=== PATIENT | female | born 1990 ===

== ENCOUNTER 2017-10-30 18:39 | Emergency (ER) | payer SELFPAY ==
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
--- NOTE | 2017-10-31 09:58 | CT SCAN REPORT ---
EXAM: CT OF THE CERVICAL SPINE HISTORY: NECK PAIN. TECHNIQUE: Axial CT images of the cervical spine were obtained with coronal and sagittal reconstructions. Comparison: None. FINDINGS: Evaluation of spinal canal contents is limited due to CT technique, however, the vertebral body height and alignment is preserved. The disk spaces are maintained. The surrounding soft tissues and lung apices are unremarkable. IMPRESSION: UNREMARKABLE CT OF THE CERVICAL SPINE. JOB NUMBER: [id number] [facility]
== END 2017-10-30 19:48 | disposition home or self-care (01) ==
LOC: ER 18:39
DX: S10.93XA Contusion of unspecified part of neck, initial encounter (principal); Y04.8XXA Assault by other bodily force, initial encounter
CPT/HCPCS: 72125; 99283

== ENCOUNTER 2017-11-07 10:40 | Emergency (ER) | payer SELFPAY ==
--- NOTE | 2017-11-07 11:08 | Emergency Department Record ---
History of Present Illness - General Chief Complaint: Neck Injury/Pain Stated Complaint: NECK PAIN Time Seen by Provider: 11/07/17 10:50 Source: Patient Mode of Arrival: Ambulatory Limitations: No limitations - History of Present Illness Initial Comments: The patient is here due to having persistent pain to her neck for 8 days since she was injured at work. She was initially seen here in the ER and had a neg CT of her neck. Since she has had persistent pain and intermittent pain that radiates to her R shoulder and proximal arm. Moving her head and neck intermittently causes the pain to radiate to her shoulder. She denies any arm weakness, forearm or hand numbness, paresthesias, leg weakness or numbness, or any bowel or bladder issues. The patient states she has been unable to see her PCP so she came back to the ER. MD Complaint: Neck injury, Neck pain Onset/Timin -: Days(s) Place: Work Radiation: Other Severity: Mild Severity scale (1-10): 6 Quality: Other Consistency: Constant Improves With: None Worsens With: Movement of neck Context: Other Associated Symptoms: None Treatments Prior to Arrival: None - Related Data Previous Rx's Medication Instructions Recorded Methylprednisolone [Medrol Dose 4 mg PO DAILY #1 tab.ds.pk 11/07/17 Pack] Naproxen [Naprosyn] 250 mg PO BID #14 tablet 11/07/17 Allergies Allergy/AdvReac Type Severity Reaction Status Date / Time No Known Allergies Allergy none Verified 10/30/17 18:53 Travel Screening - Travel/Exposure Within Last 30 Days Have you traveled within the last 30 days?: No Review of Systems Constitutional: Denies: Chills, Fever Eyes: Denies: Eye discharge ENT: Denies: Congestion Respiratory: Denies: Cough, Dyspnea Past Medical History - SOCIAL HISTORY Smoking Status: Never smoker - RESPIRATORY Hx Respiratory Disorders: No - CARDIOVASCULAR Hx Cardio Disorders: No - NEURO Hx Neuro Disorders: No - GI Hx GI Disorders: No - Hx Genitourinary Disorders: No - ENDOCRINE Hx Endocrine Disorders: No - MUSCULOSKELETAL Hx Musculoskeletal Disorders: No - PSYCH Hx Psych Problems: No - HEMATOLOGY/ONCOLOGY Hx Hematology/Oncology Disorders: No Family Medical History Any Significant Family History?: No Physical Exam - General General Appearance: Alert, Oriented x3, Cooperative, No acute distress - Head Head exam: Atraumatic, Normocephalic, Normal inspection - Eye Eye exam: Normal appearance, PERRL, EOMI - Neck Neck exam: Normal inspection, Tenderness (Palpation of the posterior neck reproduces the pain 100% R>L. There is no bruising, swelling or abrasions.). negative: Full ROM, Lymphadenopathy, Meningismus - Respiratory Respiratory exam: Normal lung sounds bilaterally. negative: Respiratory distress - Cardiovascular Cardiovascular Exam: Regular rate, Normal rhythm, Normal heart sounds - GI/Abdominal GI/Abdominal exam: Soft, Normal bowel sounds. negative: Tenderness - Extremities Extremities exam: Normal inspection, Full ROM, Normal capillary refill. negative: Joint swelling, Pedal edema, Tenderness - Neurological Neurological exam: Alert, Normal gait, Oriented X3, Reflexes normal (arm and leg reflexes are 2+ and equal bilaterally.). negative: Abnormal gait, Altered, Motor sensory deficit (Motor and sensory is 5/5 upper and lower extremities.) - Skin Skin exam: negative: Rash Course Vital Signs 11/07/17 10:41 Temperature 98.1 F Pulse Rate 77 Respiratory 18 Rate Blood Pressure 121/71 Pulse Ox 97 - Reevaluation(s) Reevaluation #1: I did explain to the patient that it appears she is having pain possibly related to the contusion. She is to F/U with an Occupational Health provider and is to be sent for PT and if not better in a month may need an MRI. She understands the plan and will comply. 11/07/17 11:05 Disposition Disposition: Discharge Clinical Impression: Neck contusion Qualifiers: Encounter type: sequela Qualified Code(s): S10.93XS - Contusion of unspecified part of neck, sequela Disposition: Home, Self-Care Condition: (2) Stable Instructions: Cervical Sprain (ED) Additional Instructions: Please take the Medrol dose pack as directed then when done switch to Naprosyn. Please see your PCP or Occupational Health Provider for further evaluation. Return to the ER for any arm or leg weakness, increased numbness, or any bowel or bladder issues. Prescriptions: Methylprednisolone [Medrol Dose Pack] 4 mg PO DAILY #1 tab.ds.pk Naproxen [Naprosyn] 250 mg PO BID #14 tablet Forms: Patient Portal Access Time of Disposition: 11:09 Quality - Quality Measures Quality Measures: N/A - Blood Pressure Screening View Details: Yes Does Patient Have Any of the Following: No Blood Pressure Classification: Pre-Hypertensive BP Reading Systolic Measurement: 121 Diastolic Measurement: 71 Screening for High Blood Pressure: < Pre-Hypertensive BP, F/U Documented > [ G8950] Pre-Hypertensive Follow-up Interventions: Referral to alternative/primary care provider.
== END 2017-11-07 11:14 | disposition home or self-care (01) ==
LOC: ER 10:40
DX: S10.9 Superficial injury of unspecified part of neck (principal); W22.8XXA Striking against or struck by other objects, initial encounter; Y93.F9 Activity, other caregiving; Y92.10 Unspecified residential institution as the place of occurrence of the external cause; Y99.0 Civilian activity done for income or pay
CPT/HCPCS: 99282

== ENCOUNTER 2018-09-14 08:25 | Emergency (ER) | payer SELFPAY ==
[2018-09-14 08:46] LABS: URINE APPEARANCE CLEAR; URINE BILIRUBIN SMALL (NEGATIVE); URINE BLOOD LARGE (NEGATIVE); URINE COLOR YELLOW; URINE GLUCOSE (UA) NEGATIVE (NEGATIVE); URINE KETONE NEGATIVE (NEGATIVE); URINE LEUKOCYTE ESTERASE LARGE (NEGATIVE); URINE NITRITE POSITIVE (NEGATIVE); URINE UROBILINOGEN >=8.0 E.U./dL (0.20 - 1.00)
[2018-09-14] MEDS ORDERED: 0.9 % SODIUM CHLORIDE 1,000 ML BAG IV ONE (08:51)
[2018-09-14 08:59] LABS: HCG,QUALITATIVE URINE NEGATIVE (NEGATIVE); URINE BACTERIA 1+; URINE EPITHELIAL CELLS 0 - 2 (FEW); URINE RBC 0 - 2 (NONE SEEN)
[2018-09-14 09:06] LABS: BASO % 0.2 % (0-6); EOS % 0.1 % (0-6); GRAN % 79.9 % (47-80); HEMATOCRIT 39.1 % (35.0-47.0); HEMOGLOBIN 13.8 gm/dl (11.6-16.0); MEAN CELL VOLUME 88.3 fl (81-97); MEAN CORPUSCULAR HEMOGLOBIN 31.2 pg (27-33); MEAN CORPUSCULAR HGB CONC 35.3 g/dl (32-36); MONO % 10.8 % (0-9); PLATELET COUNT 175 K/uL (130-400); RED BLOOD COUNT 4.43 M/uL (3.80-5.40); RED CELL DISTRIBUTION WIDTH 12.1 % (11.5-14.5); WHITE BLOOD COUNT W/O DIFF 10.9 K/uL (4.2-12.2)
[2018-09-14] MEDS ORDERED: KETOROLAC 30 MG/ML VIAL IVP ONE (09:06)
[2018-09-14 09:16] LABS: BLOOD UREA NITROGEN 10 mg/dL (6-20); CREATININE 0.7 mg/dL (0.5-0.9); EST GLOMERULAR FILTRATION RATE > 60 mL/min
[2018-09-14 09:17] LABS: TOTAL PROTEIN 7.8 g/dL (6.6-8.7)
[2018-09-14 09:19] LABS: GLUCOSE,RANDOM 166 mg/dL (74-109)
[2018-09-14 09:21] LABS: ALT/SGPT 74 U/L (<33)
[2018-09-14 09:22] LABS: ALB/GLOB RATIO 1.3 (1.1-1.8); ALBUMIN 4.4 g/dL (4.0-5.0); ALKALINE PHOSPHATASE 69 U/L (35-104); AST/SGOT 60 U/L (10.0-35.0)
--- NOTE | 2018-09-14 09:37 | Emergency Department Record ---
History of Present Illness - General Chief complaint: Flank Pain Stated complaint: FLANK PAIN RIGHT SIDE/NAUSEA Time Seen by Provider: 09/14/18 08:45 Source: Patient Mode of Arrival: Ambulatory Limitations: No limitations - History of Present Illness Initial comments: pt has been having r flank and lower quad pain for 2 days. she has a hx of kidney stones. she vomited yesterday. pain is constant MD Complaint: Other Onset/Timin -: Days(s) Radiation: R flank Severity scale (1-10): 10 Quality: Cramping, Sharp Consistency: Constant Improves with: None Worsens with: None Patient : No Associated Symptoms: Nausea/vomiting - Related Data Home Medications Medication Instructions Recorded Confirmed Last Taken No Home Med [NO HOME MEDS] 09/14/18 09/14/18 Unknown Allergies Allergy/AdvReac Type Severity Reaction Status Date / Time No Known Allergies Allergy none Verified 10/30/17 18:53 Travel Screening - Travel/Exposure Within Last 30 Days Have you traveled within the last 30 days?: No - Travel/Exposure Within Last Year Have you traveled outside the [place] in the last year?: No - Additonal Travel Details Have you been exposed to anyone with a communicable illness?: No Review of Systems Reviewed: No additional complaints except as noted below Constitutional: Reports: As per HPI. Denies: Chills, Fever, Malaise, Night sweats, Weakness, Weight change Eyes: Reports: As per HPI. Denies: Eye discharge, Eye pain, Photophobia, Vision change ENT: Reports: As per HPI. Denies: Congestion, Dental pain, Ear pain, Epistaxis , Hearing loss, Throat pain Respiratory: Reports: As per HPI. Denies: Cough, Dyspnea, Hemoptysis, Stridor, Wheezes Cardiovascular: Reports: As per HPI. Denies: Arrhythmia, Chest pain, Dyspnea on exertion, Edema, Murmurs, Orthopnea, Palpitations, Paroxysmal nocturnal dyspnea, Rheumatic Fever, Syncope Endocrine: Reports: As per HPI. Denies: Fatigue, Heat or cold intolerance, Polydipsia, Polyuria Gastrointestinal: Reports: As per HPI, Abdominal pain, Nausea, Vomiting. Denies : Constipation, Diarrhea, Hematemesis, Hematochezia, Melena Genitourinary: Reports: As per HPI. Denies: Abnormal menses, Discharge, Dyspareunia, Dysuria, Frequency, Hematuria, Incontinence, Retention, Urgency Musculoskeletal: Reports: As per HPI, Back pain. Denies: Arthralgia, Gout, Joint swelling, Myalgia, Neck pain Skin: Reports: As per HPI. Denies: Bruising, Change in color, Change in hair/ nails, Lesions, Pruritus, Rash Neurological: Reports: As per HPI. Denies: Abnormal gait, Confusion, Headache, Numbness, Paresthesias, Seizure, Tingling, Tremors, Vertigo, Weakness Psychiatric: Reports: As per HPI. Denies: Anxiety, Auditory hallucinations, Depression, Homicidal thoughts, Suicidal thoughts, Visual hallucinations Hematological/Lymphatic: Reports: As per HPI. Denies: Anemia, Blood Clots, Easy bleeding, Easy bruising, Swollen glands Past Medical History - SOCIAL HISTORY Smoking Status: Never smoker Alcohol Use: None Drug Use: None - RESPIRATORY Hx Respiratory Disorders: No - CARDIOVASCULAR Hx Cardio Disorders: No - NEURO Hx Neuro Disorders: No - GI Hx GI Disorders: No - Hx Genitourinary Disorders: Yes Hx Kidney Stones: Yes - ENDOCRINE Hx Endocrine Disorders: No - MUSCULOSKELETAL Hx Musculoskeletal Disorders: No - PSYCH Hx Psych Problems: No - HEMATOLOGY/ONCOLOGY Hx Hematology/Oncology Disorders: No Family Medical History Any Significant Family History?: No Physical Exam - General General Appearance: Alert, Oriented x3, Cooperative, Mild distress - Head Head exam: Normal inspection - Eye Eye exam: Normal appearance, PERRL, EOMI Pupils: Normal accommodation - ENT ENT exam: Normal exam, Mucous membranes moist, Normal external ear exam, Normal orophraynx Ear exam: Normal external inspection. negative: External canal tenderness Nasal Exam: Normal inspection. negative: Discharge, Sinus tenderness Mouth exam: Normal external inspection, Tongue normal Teeth exam: Normal inspection. negative: Dental caries Throat exam: Normal inspection. negative: Tonsillar erythema, Tonsillar exudate - Neck Neck exam: Normal inspection, Full ROM. negative: Tenderness - Respiratory Respiratory exam: Normal lung sounds bilaterally. negative: Respiratory distress - Cardiovascular Cardiovascular Exam: Normal rhythm, Normal heart sounds, Tachycardia - GI/Abdominal GI/Abdominal exam: Soft, Normal bowel sounds, Tenderness - Rectal Rectal exam: Deferred - exam: Deferred - Extremities Extremities exam: Normal inspection, Full ROM, Normal capillary refill. negative: Tenderness - Back Back exam: Reports: Normal inspection, Full ROM. Denies: Muscle spasm, Rash noted, Tenderness - Neurological Neurological exam: Alert, Normal gait, Oriented X3, Reflexes normal - Psychiatric Psychiatric exam: Normal affect, Normal mood - Skin Skin exam: Dry, Intact, Normal color, Warm Course Vital Signs 09/14/18 08:27 Temperature 99.3 F Pulse Rate 114 H Respiratory 20 Rate Blood Pressure 119/75 Pulse Ox 99 - Reevaluation(s) Reevaluation #1: 09/14/18 10:08 ct shows hydroneprosis w stranding and hydroureter, there are calcifications in pelvis that are possible renal stones and phleboliths. d/w dr senior Medical Decision Making - Lab Data Result diagrams: 09/14/18 08:41 09/14/18 08:41 Lab Results 09/14/18 09/14/18 09/14/18 Range/Units 08:41 08:41 Unknown WBC 10.9 (4.2-12.2) K/uL RBC 4.43 (3.80-5.40) M/uL Hgb 13.8 (11.6-16.0) gm/dl Hct 39.1 (35.0-47.0) % MCV 88.3 (81-97) fl MCH 31.2 (27-33) pg MCHC 35.3 (32-36) g/dl RDW 12.1 (11.5-14.5) % Plt Count 175 (130-400) K/uL MPV 12.0 H (7.4-10.4) fl Gran % 79.9 (47-80) % Lymphocytes % 9.0 L (16-45) % Monocytes % 10.8 H (0-9) % Eosinophils % 0.1 (0-6) % Basophils % 0.2 (0-6) % Sodium 134 L (136-145) mmol/L Potassium 3.6 (3.4-4.5) mmol/L Chloride 98 (98-107) mmol/L Carbon Dioxide 23.0 (22-29) mmol/L Anion Gap 13.0 (7-16) BUN 10 (6-20) mg/dL Creatinine 0.7 (0.5-0.9) mg/dL Estimated GFR > 60 mL/min Random Glucose 166 H (74-109) mg/dL Calcium 9.2 (8.6-10.0) mg/dL Total Bilirubin 1.10 H (0.2-1.0) mg/dL AST 60 H (10.0-35.0) U/L ALT 74 H (<33) U/L Alkaline Phosphatase 69 (35-104) U/L Total Protein 7.8 (6.6-8.7) g/dL Albumin 4.4 (4.0-5.0) g/dL Globulin 3.4 (1.4-4.8) gm/dL Albumin/Globulin Ratio 1.3 (1.1-1.8) Urine Color Yellow Urine Appearance Clear Urine pH 6.5 (5.0-8.0) Ur Specific Morse 1.025 (1.002-1.030) Urine Protein 100 mg/dl H (NEGATIVE) Urine Glucose (UA) Negative (NEGATIVE) Urine Ketones Negative (NEGATIVE) Urine Blood Large H (NEGATIVE) Urine Nitrite Positive H (NEGATIVE) Urine Bilirubin Small H (NEGATIVE) Urine Urobilinogen >=8.0 (0.20 - 1.00) E.U./dL Ur Leukocyte Esterase Large H (NEGATIVE) Urine RBC 0 - 2 (NONE SEEN) Urine WBC Too numerous to cnt (0-2/hpf) Ur Epithelial Cells 0 - 2 (FEW) Urine Bacteria 1+ Urine HCG, Qual Negative (NEGATIVE) Disposition Disposition: Transfer Clinical Impression: Pyelonephritis Hydronephrosis Qualifiers: Hydronephrosis type: with ureteropelvic junction obstruction 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
[2018-09-14] MEDS ORDERED: CIPROFLOXACIN LACTATE/D5W 400 MG/200 ML BAG IVPB ONE (09:57)
[2018-09-14] MEDS ORDERED: HYDROMORPHONE HCL 2 MG/ML VIAL IVP ONE (09:57)
--- NOTE | 2018-09-16 20:33 | CT SCAN REPORT ---
EXAM: CT SCAN ABDOMEN/PELVIS WO CONTRAST HISTORY: RIGHT FLANK AND RIGHT LOWER QUADRANT PAIN, HEMATURIA. TECHNIQUE: Axial CT scan of the abdomen and pelvis performed without oral or IV contrast. COMPARISON: None. FINDINGS: No calcified gallstones are seen within the gallbladder. No intrarenal calculi identified on either side. No hydronephrosis seen on the left and no hydroureter evident on the left. However, on the right, there is questionably slight hydronephrosis and there is also some blurring of the renal borders with soft tissue stranding in the adjacent perirenal adipose tissue. Slight dilatation of the upper right ureter. More distally, both ureters are extremely difficult to follow through the pelvis related to adjacent bowel and gynecologic viscera. There are some small pelvic calcifications bilaterally. These may all just be phleboliths, although on the right in particular, it is difficult to be certain of the relationship to the lower ureter, as the ureter itself is so poorly seen. Findings involving the right kidney could also be related to acute infection rather than acute ureteral obstruction. If there remains a strong clinical suspicion of a ureteral calculus, follow-up CT urography in this case may be useful for further evaluation in an effort to opacify the right ureter and establish its relationship to the pelvic calcifications evident. Evaluation of the bowel and viscera extremely limited without oral or IV contrast. Given this limitation, no definite hepatic, splenic, adrenal, pancreatic, or renal mass identified. Uterus is somewhat prominent in size measuring approximately 10 cm in transverse, by 9 cm in AP diameter. This is nonspecific, although could be related to leiomyomatous involvement. I believe the appendix is identified as a normal-caliber air-containing structure with no appendicitis evident. No free intraperitoneal air or free intraperitoneal fluid identified. IMPRESSION: 1. FINDINGS INVOLVING THE RIGHT KIDNEY AND UPPER URETER, DESCRIBED ABOVE, WHICH COULD REPRESENT URINARY TRACT INFECTION OR POSSIBLY A DISTAL RIGHT URETERAL CALCULUS. THE RIGHT URETER ITSELF CANNOT BE ACCURATELY FOLLOWED THROUGH THE LOWER PELVIS IN THE AREA OF SOME SMALL PELVIC CALCIFICATIONS. IF CLINICALLY WARRANTED, FOLLOW-UP CT UROGRAPHY COULD PERFORMED. 2. APPENDIX APPEARS NEGATIVE. NO FREE AIR OR FREE FLUID EVIDENT. 3. PROMINENT-SIZED UTERINE FUNDUS, NONSPECIFIC. JOB NUMBER: [id number] [facility]
== END 2018-09-14 10:41 | disposition short-term general hospital (02) ==
LOC: ER 08:25
DX: N10 Acute pyelonephritis (principal); R10.84 Generalized abdominal pain; R31.9 Hematuria, unspecified; R11.2 Nausea with vomiting, unspecified; Z87.442 Personal history of urinary calculi
CPT/HCPCS: 99285 ×2; 96365; 96375; 96361; 85025; 80053; 81001; 81025; 74176; J0744; J1885; J1170; J7030

== ENCOUNTER 2018-10-23 17:10 | Observation (INO) | payer SELFPAY ==
[2018-10-23] MEDS ORDERED: ONDANSETRON HCL IV 4 MG/2 ML VIAL IVP ONE (17:36)
[2018-10-23] MEDS ORDERED: 0.9 % SODIUM CHLORIDE 1,000 ML BAG IV ONE (17:36)
[2018-10-23] MEDS ORDERED: KETOROLAC 30 MG/ML VIAL IVP ONE (17:42)
[2018-10-23] MEDS ORDERED: HYDROMORPHONE HCL 2 MG/ML VIAL IVP ONE ×2 (17:42→19:16)
[2018-10-23 17:44] LABS: URINE APPEARANCE SL CLOUDY; URINE BILIRUBIN NEGATIVE (NEGATIVE); URINE BLOOD LARGE (NEGATIVE); URINE COLOR YELLOW; URINE GLUCOSE (UA) NEGATIVE (NEGATIVE); URINE KETONE NEGATIVE (NEGATIVE); URINE LEUKOCYTE ESTERASE LARGE (NEGATIVE); URINE NITRITE POSITIVE (NEGATIVE)
[2018-10-23] MEDS ORDERED: CEFTRIAXONE SODIUM 1 GM in 0.9 % SODIUM CHLORIDE 100ML 100 ML IVPB ONE (17:46)
--- NOTE | 2018-10-23 17:47 | Emergency Department Record ---
History of Present Illness - General Chief complaint: Female Urogenital Problem Stated complaint: VOMITING,LIGHT HEADED,FLANK PAIN Time Seen by Provider: 10/23/18 17:35 Source: Patient Mode of Arrival: Ambulatory Limitations: No limitations - History of Present Illness Initial comments: 28 yo female presents with dysuria and right sided pain. The onset was Monday. She was seen by her doctor and was diagnosed with a UTI. She was written for antibiotics. She has been having too much pain and vomiting to take any medication. She had a similar infection in August. She was transferred to [facility] at that time. She has had kidney stone prior as well. She states she was sent to [facility] in August given a suspicion of kidney stone but no stone was found at [facility]. The patient was taken to the OR at [facility]. No stone was found in the OR. MD Complaint: Dysuria, Other (Right flank pain) Onset/Timin -: Days(s) Location: LL, RLQ Severity: Moderate Severity scale (1-10): 10 Quality: Sharp Consistency: Constant Improves with: None Worsens with: None Patient : No Associated Symptoms: Nausea/vomiting - Related Data Allergies Allergy/AdvReac Type Severity Reaction Status Date / Time No Known Allergies Allergy none Verified 10/23/18 17:16 Travel Screening - Travel/Exposure Within Last 30 Days Have you traveled within the last 30 days?: No - Travel/Exposure Within Last Year Have you traveled outside the [place] in the last year?: No - Additonal Travel Details Have you been exposed to anyone with a communicable illness?: No Review of Systems Constitutional: Reports: Chills, Malaise. Denies: Fever Eyes: Denies: Eye discharge ENT: Denies: Congestion, Throat pain Respiratory: Denies: Cough, Dyspnea, Hemoptysis, Stridor, Wheezes Cardiovascular: Denies: Chest pain, Palpitations, Syncope Endocrine: Denies: Fatigue Gastrointestinal: Reports: Abdominal pain, Nausea, Vomiting. Denies: Diarrhea Genitourinary: Reports: Dysuria Musculoskeletal: Reports: Back pain Skin: Denies: Bruising, Change in color, Rash Neurological: Denies: Headache Psychiatric: Denies: Anxiety Hematological/Lymphatic: Denies: Easy bleeding, Easy bruising, Swollen glands Past Medical History - SOCIAL HISTORY Smoking Status: Never smoker Alcohol Use: None Drug Use: None - RESPIRATORY Hx Respiratory Disorders: No - CARDIOVASCULAR Hx Cardio Disorders: No - NEURO Hx Neuro Disorders: No - GI Hx GI Disorders: No - Hx Genitourinary Disorders: Yes Hx Kidney Stones: Yes - ENDOCRINE Hx Endocrine Disorders: No - MUSCULOSKELETAL Hx Musculoskeletal Disorders: No - PSYCH Hx Psych Problems: No - HEMATOLOGY/ONCOLOGY Hx Hematology/Oncology Disorders: No Family Medical History Any Significant Family History?: No Physical Exam - General General Appearance: Alert, Oriented x3, Cooperative, No acute distress Limitations: No limitations - Head Head exam: Atraumatic, Normal inspection - Eye Eye exam: Normal appearance. negative: Conjunctival injection, Scleral icterus - ENT ENT exam: Normal exam, Mucous membranes moist Ear exam: Normal external inspection Nasal Exam: Normal inspection Mouth exam: Normal external inspection - Neck Neck exam: Normal inspection - Respiratory Respiratory exam: Normal lung sounds bilaterally. negative: Respiratory distress, Rhonchi, Stridor, Wheezes - Cardiovascular Cardiovascular Exam: Regular rate, Normal rhythm, Normal heart sounds - GI/Abdominal GI/Abdominal exam: Soft, Tenderness - Rectal Rectal exam: Deferred - exam: Deferred - Back Back exam: Reports: CVA tenderness (L) - Neurological Neurological exam: Alert, Oriented X3 - Psychiatric Psychiatric exam: Normal affect, Normal mood - Skin Skin exam: Dry, Intact, Normal color, Warm Course Vital Signs 10/23/18 17:21 Temperature 99.4 F Pulse Rate 99 H Respiratory 20 Rate Blood Pressure 107/74 Pulse Ox 98 - Reevaluation(s) Reevaluation #1: 10/23/18 18:03 The UA is consistent with UTI CT ordered given the severity of the pain IV Rocephin ordered 10/23/18 18:16 The CBC was reviewed No acute changes. 10/23/18 18:31 No acute changes on the CMP The CT scan was signed out to Dr Sparks for review and likely admission Medical Decision Making - Lab Data Result diagrams: 10/25/18 06:20 10/25/18 06:20 Disposition Disposition: Admit Clinical Impression: Pyelonephritis Disposition: Still a Patient at [facility] Decision to Admit: Admit from ER Decision to Admit Date: 10/23/18 Decision to Admit Time: 19:00 Condition: (2) Stable Time of Disposition: 20:00 Quality - Quality Measures Quality Measures: N/A - Blood Pressure Screening Does Patient Have Any of the Following: No Blood Pressure Classification: Normal BP Reading Systolic Measurement: 107 Diastolic Measurement: 74 Screening for High Blood Pressure: < Normal BP, F/U Not Required > [G8752]
[2018-10-23 17:52] LABS: HCG,QUALITATIVE URINE NEGATIVE (NEGATIVE); URINE BACTERIA 2+; URINE EPITHELIAL CELLS 0 - 2 (FEW); URINE RBC NONE SEEN (NONE SEEN)
[2018-10-23 18:00] LABS: BASO % 0.1 % (0-6); EOS % 0.4 % (0-6); GRAN % 68.8 % (47-80); HEMATOCRIT 39.4 % (35.0-47.0); HEMOGLOBIN 13.4 gm/dl (11.6-16.0); LYMPH % 18.7 % (16-45); MEAN CORPUSCULAR HEMOGLOBIN 30.6 pg (27-33); MEAN PLATELET VOLUME 11.1 fl (7.4-10.4); PLATELET COUNT 205 K/uL (130-400); RED BLOOD COUNT 4.38 M/uL (3.80-5.40); WHITE BLOOD COUNT W/O DIFF 7.3 K/uL (4.2-12.2)
[2018-10-23 18:12] LABS: BLOOD UREA NITROGEN 9 mg/dL (6-20)
[2018-10-23 18:13] LABS: CREATININE 0.7 mg/dL (0.5-0.9); EST GLOMERULAR FILTRATION RATE > 60 mL/min; TOTAL PROTEIN 7.8 g/dL (6.6-8.7)
[2018-10-23 18:15] LABS: GLUCOSE,RANDOM 96 mg/dL (74-109)
[2018-10-23 18:18] LABS: ALB/GLOB RATIO 1.5 (1.1-1.8); ALBUMIN 4.7 g/dL (4.0-5.0); ALKALINE PHOSPHATASE 55 U/L (35-104); ALT/SGPT 7 U/L (<33); AST/SGOT 12 U/L (10.0-35.0)
--- NOTE | 2018-10-23 19:34 | Emergency Department Record ---
History of Present Illness - General Chief complaint: Female Urogenital Problem Stated complaint: VOMITING,LIGHT HEADED,FLANK PAIN Time Seen by Provider: 10/23/18 17:35 Source: Patient Mode of Arrival: Ambulatory Limitations: No limitations - History of Present Illness Onset/Timin -: Days(s) Location: LL, RLQ Severity: Moderate Severity scale (1-10): 10 Quality: Sharp Consistency: Constant Improves with: None Worsens with: None Patient : No Associated Symptoms: Nausea/vomiting - Related Data Allergies Allergy/AdvReac Type Severity Reaction Status Date / Time No Known Allergies Allergy none Verified 10/23/18 17:16 Travel Screening - Travel/Exposure Within Last 30 Days Have you traveled within the last 30 days?: No - Travel/Exposure Within Last Year Have you traveled outside the [place] in the last year?: No - Additonal Travel Details Have you been exposed to anyone with a communicable illness?: No Past Medical History - SOCIAL HISTORY Smoking Status: Never smoker Alcohol Use: None Drug Use: None - RESPIRATORY Hx Respiratory Disorders: No - CARDIOVASCULAR Hx Cardio Disorders: No - NEURO Hx Neuro Disorders: No - GI Hx GI Disorders: No - Hx Genitourinary Disorders: Yes Hx Kidney Stones: Yes - ENDOCRINE Hx Endocrine Disorders: No - MUSCULOSKELETAL Hx Musculoskeletal Disorders: No - PSYCH Hx Psych Problems: No - HEMATOLOGY/ONCOLOGY Hx Hematology/Oncology Disorders: No Family Medical History Any Significant Family History?: No Physical Exam - General Limitations: No limitations Course Vital Signs 10/23/18 10/23/18 10/23/18 17:21 18:44 19:27 Temperature 99.4 F Pulse Rate 99 H Pulse Rate [ 75 80 Pulse Ox Probe] Respiratory 20 20 16 Rate Blood Pressure 107/74 Blood Pressure 105/63 110/68 [Right Arm] Pulse Ox 98 95 - Reevaluation(s) Reevaluation #1: 10/23/18 19:32 CT Abdomen and Pelvis: Enhancement of the right renal collecting system extending down to the bladder. No obstructing calculus is identified. Patient was updated on all results, Rocephin has completed infusion. Dilaudid was given for increasing pain symptoms following return from CT. Will admit for further evaluation and treatment. Medical Decision Making - Lab Data Result diagrams: 10/23/18 17:50 10/23/18 17:50 Lab Results 1110/23/18 10/23/18 Range/Units 17:30 17:50 17:50 WBC 7.3 (4.2-12.2) K/uL RBC 4.38 (3.80-5.40) M/uL Hgb 13.4 (11.6-16.0) gm/dl Hct 39.4 (35.0-47.0) % MCV 90.0 (81-97) fl MCH 30.6 (27-33) pg MCHC 34.0 (32-36) g/dl RDW 13.0 (11.5-14.5) % Plt Count 205 (130-400) K/uL MPV 11.1 H (7.4-10.4) fl Gran % 68.8 (47-80) % Lymphocytes % 18.7 (16-45) % Monocytes % 12.0 H (0-9) % Eosinophils % 0.4 (0-6) % Basophils % 0.1 (0-6) % Sodium 136 (136-145) mmol/L Potassium 3.6 (3.4-4.5) mmol/L Chloride 96 L (98-107) mmol/L Carbon Dioxide 26.0 (22-29) mmol/L Anion Gap 14.0 (7-16) BUN 9 (6-20) mg/dL Creatinine 0.7 (0.5-0.9) mg/dL Estimated GFR > 60 mL/min Random Glucose 96 (74-109) mg/dL Calcium 9.3 (8.6-10.0) mg/dL Total Bilirubin 1.10 H (0.2-1.0) mg/dL AST 12 (10.0-35.0) U/L ALT 7 (<33) U/L Alkaline Phosphatase 55 (35-104) U/L Total Protein 7.8 (6.6-8.7) g/dL Albumin 4.7 (4.0-5.0) g/dL Globulin 3.1 (1.4-4.8) gm/dL Albumin/Globulin Ratio 1.5 (1.1-1.8) Urine Color Yellow Urine Appearance Sl cloudy Urine pH 7.5 (5.0-8.0) Ur Specific [place] 1.020 (1.002-1.030) Urine Protein 100 mg/dl H (NEGATIVE) Urine Glucose (UA) Negative (NEGATIVE) Urine Ketones Negative (NEGATIVE) Urine Blood Large H (NEGATIVE) Urine Nitrite Positive H (NEGATIVE) Urine Bilirubin Negative (NEGATIVE) Urine Urobilinogen 1.0 (0.20 - 1.00) E.U./dL Ur Leukocyte Esterase Large H (NEGATIVE) Urine RBC None seen (NONE SEEN) Urine WBC Too numerous to cnt (0-2/hpf) Ur Epithelial Cells 0 - 2 (FEW) Urine Bacteria 2+ Urine HCG, Qual Negative (NEGATIVE) Disposition Disposition: Admit Clinical Impression: Pyelonephritis Disposition: Still a Patient at [facility] Decision to Admit: Admit from ER Decision to Admit Date: 10/23/18 Decision to Admit Time: 19:34 Condition: (2) Stable Forms: Patient Portal Access Time of Disposition: 19:34 Quality - Quality Measures Quality Measures: N/A - Blood Pressure Screening Does Patient Have Any of the Following: No Blood Pressure Classification: Normal BP Reading Systolic Measurement: 107 Diastolic Measurement: 74 Screening for High Blood Pressure: < Normal BP, F/U Not Required > [G8783]
[2018-10-23] MEDS: HYDROMORPHONE HCL 2 MG/ML VIAL IV PRN (22:20)
[2018-10-23] MEDS: 0.9 % SODIUM CHLORIDE 1000ML 1,000 ML IV PRN (22:25)
[2018-10-24] MEDS: 0.9 % SODIUM CHLORIDE 1000ML 1,000 ML IV PRN ×3 (05:33→22:27)
[2018-10-24] MEDS: HYDROMORPHONE HCL 2 MG/ML VIAL IV PRN ×3 (05:42→17:40)
--- NOTE | 2018-10-24 08:24 | CT SCAN REPORT ---
EXAM: CT OF THE ABDOMEN AND PELVIS WITH CONTRAST HISTORY: RIGHT LOWER QUADRANT PAIN. TECHNIQUE: Sequential axial images were obtained from the diaphragms through the ischiorectal fossa after intravenous administration of 100 ml of Omnipaque 300 contrast material. Sagittal and coronal reformatted images were performed. FINDINGS: The visualized lung bases appear normal. The heart and pericardium appear normal. The liver, gallbladder, pancreas and spleen appear normal. The adrenal glands appear normal. There is abnormal enhancement of the right renal collecting system and urinary bladder. Findings are consistent with urinary tract infection. No obstructing calculus is appreciated. The left kidney appears normal. The uterus and adnexal structures are normal. The small and large bowel appears normal. The osseous structures are normal. IMPRESSION: ABNORMAL ENHANCEMENT OF THE RIGHT RENAL COLLECTING SYSTEM AND URINARY BLADDER. FINDINGS ARE SUGGESTIVE OF URINARY TRACT INFECTION. NO OBSTRUCTING CALCULUS IS APPRECIATED. JOB NUMBER: [id number] MTDD
[2018-10-24] MEDS: ONDANSETRON HCL IV 4 MG/2 ML VIAL IVP PRN ×3 (08:39→22:18)
[2018-10-24] MEDS: CEFTRIAXONE 1GM/50ML BAG 1 GM/50 ML BAG IVPB SCH ×2 (10:03→22:19)
[2018-10-24] MEDS: PHENAZOPYRIDINE HCL 95 MG TABLET PO SCH ×3 (10:28→22:15)
[2018-10-24] MEDS: ACETAMINOPHEN 1,000 MG/100 ML BTL IVPB SCH ×3 (10:56→17:39)
--- NOTE | 2018-10-24 11:54 | History & Physical ---
History of Present Illness - Date of Service Date of Service for History & Physical: 10/27/18 - History of Present Illness Admitting Diagnosis: Pyelonephritis History of Present Illness: Pt presents for phylonephritis. Pt reports that symptoms started monday with freq, urgency and burning. Called PCP monday but could not be seen until monday. Denies any past issues with UTI outside of last month having same issue. PCP referred to urology but pt does not have insurance at this time. Pt presented to [facility] ER 10/23/18 for abd pain and nausea. CT reviewed positive for UTI, no stone noted UA positive UTI, culture pending, BC x2 pending Pt medicated with Rocephin 1gm QD, 1L NS bolus, zofran IVP, dialudid 0.5mg IVP, toradol given once. Labs WBC 7.3, Hbg 13.4, Plt 205 NA136, K 3.6, CO2 26, BUN 9, GFR>60, Glucose 96, LFTs normal UA positive, culture pending Vitals BP 107/74, Hr 99, RR20, 98% RA, 99.4 F, pain 09/0510/24/18 Pt resting in bed with lights off and door closed. Mild distress noted r/t pain 08/06. CVA tenderness noted right worse than left, suprapubic abd pain noted with palpation. Pt attempted general diet in the am but nausea returned and pain continued, diet changed to soft. Medications adjusted for pain, MAPS reviewed. Dilaudid 1mg q3h, acetaminophen IVPB, and azo ordered. Rocephin 1gm increased to BID. IVF and zofran to continue. Pt encouraged to drink fluids, avoid caffeine if possible. Lungs clear to auscultation. Move all extremities. PCP [facility] (urology referral from PCP not completed yet) Travel Screening - Travel/Exposure Within Last 30 Days Have you traveled within the last 30 days?: No - Travel/Exposure Within Last Year Have you traveled outside the [place] in the last year?: No - Additonal Travel Details Have you been exposed to anyone with a communicable illness?: No - Travel Symptoms Symptom Screening: None Review of Systems Constitutional: Reports: Chills, Weakness Eyes: Reports: As per HPI. Denies: Eye discharge, Eye pain, Photophobia, Vision change ENT: Reports: As per HPI. Denies: Congestion, Dental pain, Ear pain, Epistaxis , Hearing loss, Throat pain Respiratory: Reports: As per HPI. Denies: Cough, Dyspnea, Hemoptysis, Stridor, Wheezes Cardiovascular: Reports: As per HPI. Denies: Arrhythmia, Chest pain, Dyspnea on exertion, Edema, Murmurs, Orthopnea, Palpitations, Paroxysmal nocturnal dyspnea, Rheumatic Fever, Syncope Endocrine: Reports: As per HPI. Denies: Fatigue, Heat or cold intolerance, Polydipsia, Polyuria Gastrointestinal: Reports: Abdominal pain, Nausea Musculoskeletal: Reports: Back pain Skin: Denies: Bruising, Change in color Neurological: Denies: Abnormal gait Hematological/Lymphatic: Denies: Easy bleeding, Easy bruising Past Medical History - SOCIAL HISTORY Smoking Status: Never smoker Alcohol Use: None Drug Use: None - RESPIRATORY Hx Respiratory Disorders: No - CARDIOVASCULAR Hx Cardio Disorders: No - NEURO Hx Neuro Disorders: No - GI Hx GI Disorders: No - Hx Genitourinary Disorders: Yes Hx Kidney Stones: Yes - ENDOCRINE Hx Endocrine Disorders: No - MUSCULOSKELETAL Hx Musculoskeletal Disorders: No - PSYCH Hx Psych Problems: No - HEMATOLOGY/ONCOLOGY Hx Hematology/Oncology Disorders: No Family Medical History Any Significant Family History?: No H&P Meds/Allergies - Allergies Allergies: Allergies Allergy/AdvReac Type Severity Reaction Status Date / Time No Known Allergies Allergy none Verified 10/23/18 17:16 - Active Medications Active Medications: Current Medications Hydromorphone HCl (Dilaudid) 1 mg IV Q3H PRN PRN Reason: PAIN - MOD TO SEVERE (5-10) Sodium Chloride () 1,000 mls @ 125 mls/hr IV .Q8H PRN PRN Reason: LARGE VOLUME IV Last Admin: 10/24/18 05:33 Dose: 125 mls/hr CEFTRIAXONE 1GM/50ML BAG (Ceftriaxone 1 Gm-D5w Bag) 1 gm in 50 mls @ 100 mls/ hr IVPB Q12HR TOM Last Infusion: 10/24/18 10:55 Dose: Infused Acetaminophen (Ofirmev) 1,000 mg in 100 mls @ 400 mls/hr IVPB Q6HR TOM Last Infusion: 10/24/18 11:20 Dose: Infused Ondansetron HCl (Zofran) 4 mg IVP Q4H PRN PRN Reason: NAUSEA Last Admin: 10/24/18 08:39 Dose: 4 mg Phenazopyridine HCl (Azo Urinary Pain Relief) 190 mg PO TID TOM Stop: 10/26/18 10:01 Last Admin: 10/24/18 10:28 Dose: 190 mg Physical Exam - Vital Signs Vital Signs: Vital Signs - Last 24 Hrs Temp Pulse Pulse Resp BP BP Pulse Ox 10/24/18 09:00 76 16 10/24/18 08:00 99.7 F H 67 16 107/47 100 10/24/18 04:00 98.6 F 79 17 105/48 97 10/23/18 20:20 98.1 F 63 16 132/61 99 10/23/18 20:16 68 20 96/51 97 10/23/18 19:27 80 16 110/68 95 10/23/18 18:44 75 20 105/63 10/23/18 17:21 99.4 F 99 H 20 107/74 98 - General General Appearance: Alert, Oriented x3, Cooperative, Mild distress Limitations: No limitations - Head Head exam: Atraumatic - Eye Eye exam: Normal appearance - ENT ENT exam: Normal exam Ear exam: Normal external inspection Nasal Exam: Normal inspection Mouth exam: Normal external inspection Teeth exam: Normal inspection - Respiratory Respiratory exam: Normal lung sounds bilaterally - Cardiovascular Cardiovascular Exam: Regular rate, Normal rhythm, Normal heart sounds Peripheral Pulses: 3+: Radial (R), Radial (L), Dorsalis Pedis (R), Dorsalis Pedis (L) - GI/Abdominal GI/Abdominal exam: Soft, Hypoactive bowel sounds, Tenderness - Rectal Rectal exam: Deferred - exam: Deferred - Extremities Extremities exam: Normal inspection - Back Back exam: Reports: CVA tenderness (R), CVA tenderness (L) - Neurological Neurological exam: Alert, CN II-XII intact, Oriented X3 - Psychiatric Psychiatric exam: Flat affect - Skin Skin exam: Dry, Intact, Normal color, Warm Results - Labs Result Diagrams: 10/25/18 06:20 10/25/18 06:20 Labs Last 24 Hours: Laboratory Results - last 24 hr 10/23/18 10/23/18 10/23/18 17:30 17:50 17:50 WBC 7.3 RBC 4.38 Hgb 13.4 Hct 39.4 MCV 90.0 MCH 30.6 MCHC 34.0 RDW 13.0 Plt Count 205 MPV 11.1 H Gran % 68.8 Lymphocytes % 18.7 Monocytes % 12.0 H Eosinophils % 0.4 Basophils % 0.1 Sodium 136 Potassium 3.6 Chloride 96 L Carbon Dioxide 26.0 Anion Gap 14.0 BUN 9 Creatinine 0.7 Estimated GFR > 60 Random Glucose 96 Calcium 9.3 Total Bilirubin 1.10 H AST 12 ALT 7 Alkaline Phosphatase 55 Total Protein 7.8 Albumin 4.7 Globulin 3.1 Albumin/Globulin Ratio 1.5 Urine Color Yellow Urine Appearance Sl cloudy Urine pH 7.5 Ur Specific [place] 1.020 Urine Protein 100 mg/dl H Urine Glucose (UA) Negative Urine Ketones Negative Urine Blood Large H Urine Nitrite Positive H Urine Bilirubin Negative Urine Urobilinogen 1.0 Ur Leukocyte Esterase Large H Urine RBC None seen Urine WBC Too numerous to cnt Ur Epithelial Cells 0 - 2 Urine Bacteria 2+ Urine HCG, Qual Negative - Imaging and Cardiology CT scan - abdomen Status: Report reviewed VTE H&P Assessment - Risk for VTE Risk for VTE: No Risk Level: Very Low Risk Assessment Date: 10/24/18 Risk Assessment Time: 20:38 VTE Orders Placed or Will Be Placed: Yes Plan - Detailed Diagnosis and Plan (1) Pyelonephritis Current Visit: Yes Status: Acute Base Code: N12 - TUBULO-INTERSTITIAL NEPHRITIS, NOT SPCF ACUTE OR CHRONIC Comment: 10/24/18 -rocpehin 1gm BID IVPB -urine culture and BC x2 pending -encourage fluids -IVF 10/25/18 -cont rocephine 1gm BID, IVF changed to d5 r/t continued poor PO intake -pt reports n/v after azo, d/c and benadryl added for nausea control -pt encouraged to try sage farideh, crackers or jello to adcance diet -tolerating PO tylenol, still needing dilaudid -left CVA tenderness less but right still mod pain -UA culture still pending (2) Hydronephrosis Current Visit: No Status: Acute Qualifiers: Hydronephrosis type: with ureteropelvic junction obstruction Qualified Code (s): Q62.11 - Congenital occlusion of ureteropelvic junction Base Code: N13.30 - UNSPECIFIED HYDRONEPHROSIS Comment: 10/24/18 -IV ABX -monitor I/O -pain control 10/25/18 -continue current treatement (3) Abdominal pain Current Visit: Yes Status: Acute Base Code: R10.9 - UNSPECIFIED ABDOMINAL PAIN Comment: 10/24/18 -CT reviewed UTI -pt not tolerating PO well, attempted general diet in the AM but nausea returned and pain 08/06 -MAPS reviewed, one RX for norco last month correlating to last infection -Dilaudid 0.5mg q2h not effective for pain control, changed to 1mg dilaudid q3h , acetominophen IVPB, azo TID PRN -pt reported better pain control to nursing staff after lunch, declining dilaudid at that time -continue IV ABX, IVF and abd rest -reassess in the AM 10/25/18 -continue current med plan, attempt PO pain control when diet advanced and tolerated (4) Full code status Current Visit: Yes Status: Acute Base Code: Z78.9 - OTHER SPECIFIED HEALTH STATUS Comment: 10/25/18 -full code
[2018-10-25] MEDS: HYDROMORPHONE HCL 2 MG/ML VIAL IV PRN ×3 (06:29→13:05)
[2018-10-25] MEDS: ONDANSETRON HCL IV 4 MG/2 ML VIAL IVP PRN ×2 (06:30→10:06)
[2018-10-25] MEDS: 0.9 % SODIUM CHLORIDE 1000ML 1,000 ML IV PRN (06:30)
[2018-10-25 06:43] LABS: BASO % 0.2 % (0-6); EOS % 1.2 % (0-6); GRAN % 64.1 % (47-80); HEMATOCRIT 32.1 % (35.0-47.0); HEMOGLOBIN 10.6 gm/dl (11.6-16.0); MEAN CELL VOLUME 90.9 fl (81-97); MEAN PLATELET VOLUME 11.3 fl (7.4-10.4); MONO % 11.5 % (0-9); PLATELET COUNT 184 K/uL (130-400); RED BLOOD COUNT 3.53 M/uL (3.80-5.40); RED CELL DISTRIBUTION WIDTH 12.6 % (11.5-14.5)
[2018-10-25 06:56] LABS: BLOOD UREA NITROGEN 4 mg/dL (6-20); CREATININE 0.4 mg/dL (0.5-0.9); EST GLOMERULAR FILTRATION RATE > 60 mL/min; GLUCOSE,RANDOM 96 mg/dL (74-109)
[2018-10-25] MEDS: ACETAMINOPHEN 500 MG TABLET PO PRN ×2 (08:32→14:22)
[2018-10-25] MEDS: CEFTRIAXONE 1GM/50ML BAG 1 GM/50 ML BAG IVPB SCH ×2 (10:06→22:26)
[2018-10-25] MEDS: DEXTROSE 5 % IN WATER 1,000 ML IV SCH ×2 (10:13→18:42)
[2018-10-25] MEDS: PHENAZOPYRIDINE HCL 95 MG TABLET PO SCH (10:15)
[2018-10-25] MEDS: DIPHENHYDRAMINE HCL 50 MG/ML VIAL IVP PRN ×2 (10:47→15:35)
--- NOTE | 2018-10-25 21:33 | Physician Progress Note ---
Subjective - Date Date of Physician Progress Note: 10/27/18 - Subjective Location: Abdomen Radiation: Flank Severity scale (1-10): 7 Quality: Aching Consistency: Intermittent Improves with: Medication Associated symptoms: Malaise, Nausea/vomiting Objective - Multidiciplinary Team Multidiciplinary Team: Case Management, Nursing - Vital Signs Vital Signs: Vital Signs - Last 24 Hrs Temp Pulse Resp BP Pulse Ox 10/25/18 16:00 98.7 F 56 L 16 104/59 100 10/25/18 08:40 16 10/25/18 08:35 97.9 F 60 16 111/60 96 10/25/18 04:00 98 F 66 16 94/51 98 - General General Appearance: Alert, Oriented x3, Cooperative, No acute distress Limitations: No limitations - Head Head exam: Atraumatic - Eye Eye exam: Normal appearance - ENT ENT exam: Normal exam Ear exam: Normal external inspection Nasal Exam: Normal inspection Mouth exam: Normal external inspection Teeth exam: Normal inspection - Respiratory Respiratory exam: Normal lung sounds bilaterally - Cardiovascular Cardiovascular Exam: Regular rate, Normal rhythm, Normal heart sounds Peripheral Pulses: 3+: Radial (R), Radial (L), Dorsalis Pedis (R), Dorsalis Pedis (L) - GI/Abdominal GI/Abdominal exam: Soft, Hypoactive bowel sounds, Tenderness - Rectal Rectal exam: Deferred - exam: Deferred - Extremities Extremities exam: Normal inspection - Back Back exam: Reports: CVA tenderness (R), CVA tenderness (L) - Neurological Neurological exam: Alert, CN II-XII intact, Oriented X3 - Psychiatric Psychiatric exam: Flat affect - Skin Skin exam: Dry, Intact, Normal color, Warm Assessment and Plan - Assessment and Plan (1) Pyelonephritis Current Visit: Yes Status: Acute Base Code: N12 - TUBULO-INTERSTITIAL NEPHRITIS, NOT SPCF ACUTE OR CHRONIC Comment: 10/24/18 -rocpehin 1gm BID IVPB -urine culture and BC x2 pending -encourage fluids -IVF 10/25/18 -cont rocephine 1gm BID, IVF changed to d5 r/t continued poor PO intake -pt reports n/v after azo, d/c and benadryl added for nausea control -pt encouraged to try sage farideh, crackers or jello to adcance diet -tolerating PO tylenol, still needing dilaudid -left CVA tenderness less but right still mod pain -UA culture still pending (2) Hydronephrosis Current Visit: No Status: Acute Qualifiers: Hydronephrosis type: with ureteropelvic junction obstruction Qualified Code (s): Q62.11 - Congenital occlusion of ureteropelvic junction Base Code: N13.30 - UNSPECIFIED HYDRONEPHROSIS Comment: 10/24/18 -IV ABX -monitor I/O -pain control 10/25/18 -continue current treatement (3) Abdominal pain Current Visit: Yes Status: Acute Base Code: R10.9 - UNSPECIFIED ABDOMINAL PAIN Comment: 10/24/18 -CT reviewed UTI -pt not tolerating PO well, attempted general diet in the AM but nausea returned and pain 08/06 -MAPS reviewed, one RX for norco last month correlating to last infection -Dilaudid 0.5mg q2h not effective for pain control, changed to 1mg dilaudid q3h , acetominophen IVPB, azo TID PRN -pt reported better pain control to nursing staff after lunch, declining dilaudid at that time -continue IV ABX, IVF and abd rest -reassess in the AM 10/25/18 -continue current med plan, attempt PO pain control when diet advanced and tolerated (4) Full code status Current Visit: Yes Status: Acute Base Code: Z78.9 - OTHER SPECIFIED HEALTH STATUS Comment: 10/25/18 -full code Results - Labs Result Diagrams: 10/25/18 06:20 10/25/18 06:20 Labs Last 24 Hours: Laboratory Results - last 24 hr 10/25/18 10/25/18 06:20 06:20 WBC 5.0 RBC 3.53 L Hgb 10.6 L Hct 32.1 L MCV 90.9 MCH 30.0 MCHC 33.0 RDW 12.6 Plt Count 184 MPV 11.3 H Gran % 64.1 Lymphocytes % 23.0 Monocytes % 11.5 H Eosinophils % 1.2 Basophils % 0.2 Sodium 141 Potassium 3.7 Chloride 107 Carbon Dioxide 24.0 Anion Gap 10.0 BUN 4 L Creatinine 0.4 L Estimated GFR > 60 Random Glucose 96 Calcium 8.4 L DVT/PE Assessment - Risk for VTE Risk for VTE: No Risk Level: Low (reassessed 10/25/18- not ambulating halls, only tolieting) Risk Assessment Date: 10/24/18 Risk Assessment Time: 20:38 VTE Orders Placed or Will Be Placed: Yes - Active Medicaitons Current Medications: Current Medications Acetaminophen (Tylenol 500mg Tab) 1,000 mg PO Q6H PRN PRN Reason: ABDOMINAL PAIN Stop: 10/26/18 21:00 Last Admin: 10/25/18 14:22 Dose: 1,000 mg Diphenhydramine HCl (Benadryl) 12.5 mg IVP Q6H PRN PRN Reason: NAUSEA Last Admin: 10/25/18 15:35 Dose: 12.5 mg Hydromorphone HCl (Dilaudid) 1 mg IV Q3H PRN PRN Reason: PAIN - MOD TO SEVERE (5-10) Last Admin: 10/25/18 13:05 Dose: 1 mg CEFTRIAXONE 1GM/50ML BAG (Ceftriaxone 1 Gm-D5w Bag) 1 gm in 50 mls @ 100 mls/ hr IVPB Q12HR TOM Last Infusion: 10/25/18 10:45 Dose: Infused Dextrose () 1,000 mls @ 125 mls/hr IV .Q8H TOM Last Admin: 10/25/18 18:42 Dose: 125 mls/hr Ondansetron HCl (Zofran) 4 mg IVP Q4H PRN PRN Reason: NAUSEA Last Admin: 10/25/18 10:06 Dose: 4 mg AMI Plan - Labs Result Diagrams: 10/25/18 06:20 10/25/18 06:20
[2018-10-26] MEDS: DEXTROSE 5 % IN WATER 1,000 ML IV SCH (03:37)
[2018-10-26] MEDS: ONDANSETRON HCL IV 4 MG/2 ML VIAL IVP PRN (08:16)
[2018-10-26] MEDS: ENOXAPARIN 40 MG/0.4 ML SYR SQ SCH (09:22)
[2018-10-26] MEDS: CEFTRIAXONE 1GM/50ML BAG 1 GM/50 ML BAG IVPB SCH (10:32)
[2018-10-26] MEDS: ACETAMINOPHEN 500 MG TABLET PO PRN (15:00)
--- NOTE | 2018-10-26 16:56 | Physician Progress Note ---
Subjective - Date Date of Physician Progress Note: 10/27/18 - Subjective Location: Abdomen Severity scale (1-10): 7 Quality: Aching Consistency: Intermittent Improves with: Medication Objective - Multidiciplinary Team Multidiciplinary Team: Case Management, Nursing - Vital Signs Vital Signs: Vital Signs - Last 24 Hrs Temp Pulse Resp BP Pulse Ox 10/26/18 07:55 97.9 F 62 22 102/63 98 10/25/18 21:27 98.1 F 61 18 96/52 98 10/25/18 21:00 61 18 - General General Appearance: Alert, Oriented x3, Cooperative, No acute distress Limitations: No limitations - Head Head exam: Atraumatic, Normal inspection - Eye Eye exam: Normal appearance. negative: Conjunctival injection, Scleral icterus - ENT ENT exam: Normal exam, Mucous membranes moist Ear exam: Normal external inspection Nasal Exam: Normal inspection Mouth exam: Normal external inspection Teeth exam: Normal inspection - Neck Neck exam: Normal inspection - Respiratory Respiratory exam: Normal lung sounds bilaterally. negative: Respiratory distress, Rhonchi, Stridor, Wheezes - Cardiovascular Cardiovascular Exam: Regular rate, Normal rhythm, Normal heart sounds Peripheral Pulses: 3+: Radial (R), Radial (L), Dorsalis Pedis (R), Dorsalis Pedis (L) - GI/Abdominal GI/Abdominal exam: Soft, Tenderness - Rectal Rectal exam: Deferred - exam: Deferred - Extremities Extremities exam: Normal inspection - Back Back exam: Reports: CVA tenderness (L) - Neurological Neurological exam: Alert, Oriented X3 - Psychiatric Psychiatric exam: Normal affect, Normal mood - Skin Skin exam: Dry, Intact, Normal color, Warm Assessment and Plan - Assessment and Plan (1) Pyelonephritis Current Visit: Yes Status: Acute Base Code: N12 - TUBULO-INTERSTITIAL NEPHRITIS, NOT SPCF ACUTE OR CHRONIC Comment: 10/24/18 -rocpehin 1gm BID IVPB -urine culture and BC x2 pending -encourage fluids -IVF 10/25/18 -cont rocephine 1gm BID, IVF changed to d5 r/t continued poor PO intake -pt reports n/v after azo, d/c and benadryl added for nausea control -pt encouraged to try sage farideh, crackers or jello to adcance diet -tolerating PO tylenol, still needing dilaudid -left CVA tenderness less but right still mod pain -UA culture still pending 10/26/18 -pt continues to have pain but has improved and is tolerating clear liq/soft diet -reports wanting to go home, encouraged to advance diet lunch/dinner and changing abx from IV to PO -d/c am if tolerating PO abx CVA left normal, right slight tenderness CVA (2) Hydronephrosis Current Visit: No Status: Acute Qualifiers: Hydronephrosis type: with ureteropelvic junction obstruction Qualified Code (s): Q62.11 - Congenital occlusion of ureteropelvic junction Base Code: N13.30 - UNSPECIFIED HYDRONEPHROSIS Comment: 10/24/18 -IV ABX -monitor I/O -pain control 10/25/18 -continue current treatement 10/26/18 -change IV ABX to PO with advancing diet (3) Abdominal pain Current Visit: Yes Status: Acute Base Code: R10.9 - UNSPECIFIED ABDOMINAL PAIN Comment: 10/24/18 -CT reviewed UTI -pt not tolerating PO well, attempted general diet in the AM but nausea returned and pain 08/06 -MAPS reviewed, one RX for norco last month correlating to last infection -Dilaudid 0.5mg q2h not effective for pain control, changed to 1mg dilaudid q3h , acetominophen IVPB, azo TID PRN -pt reported better pain control to nursing staff after lunch, declining dilaudid at that time -continue IV ABX, IVF and abd rest -reassess in the AM 10/25/18 -continue current med plan, attempt PO pain control when diet advanced and tolerated (4) Full code status Current Visit: Yes Status: Acute Base Code: Z78.9 - OTHER SPECIFIED HEALTH STATUS Comment: 10/25/18 -full code Results - Labs Result Diagrams: 10/25/18 06:20 10/25/18 06:20 DVT/PE Assessment - Risk for VTE Risk for VTE: No Risk Level: Low (reassessed 10/25/18- not ambulating halls, only tolieting) Risk Assessment Date: 10/24/18 Risk Assessment Time: 20:38 VTE Orders Placed or Will Be Placed: Yes - Active Medicaitons Current Medications: Current Medications Acetaminophen (Tylenol 500mg Tab) 1,000 mg PO Q6H PRN PRN Reason: ABDOMINAL PAIN Stop: 10/26/18 21:00 Last Admin: 10/26/18 15:00 Dose: 1,000 mg Diphenhydramine HCl (Benadryl) 12.5 mg IVP Q6H PRN PRN Reason: NAUSEA Last Admin: 10/25/18 15:35 Dose: 12.5 mg Enoxaparin Sodium (Lovenox) 40 mg SQ DAILY [facility] Last Admin: 10/26/18 09:22 Dose: 40 mg Hydromorphone HCl (Dilaudid) 1 mg IV Q3H PRN PRN Reason: PAIN - MOD TO SEVERE (5-10) Last Admin: 10/25/18 13:05 Dose: 1 mg CEFTRIAXONE 1GM/50ML BAG (Ceftriaxone 1 Gm-D5w Bag) 1 gm in 50 mls @ 100 mls/ hr IVPB Q12HR [facility] Last Infusion: 10/26/18 11:24 Dose: Infused Dextrose () 1,000 mls @ 125 mls/hr IV .Q8H [facility] Last Admin: 10/26/18 03:37 Dose: 125 mls/hr Ondansetron HCl (Zofran) 4 mg IVP Q4H PRN PRN Reason: NAUSEA Last Admin: 10/26/18 08:16 Dose: 4 mg AMI Plan - Labs Result Diagrams: 10/25/18 06:20 10/25/18 06:20
[2018-10-26] MEDS: CEPHALEXIN 500 MG CAPSULE PO SCH (17:28)
[2018-10-27] MEDS: CEPHALEXIN 500 MG CAPSULE PO SCH ×2 (00:47→09:37)
[2018-10-27] MEDS: DEXTROSE 5 % IN WATER 1,000 ML IV SCH (07:44)
[2018-10-27] MEDS: ENOXAPARIN 40 MG/0.4 ML SYR SQ SCH (09:39)
--- NOTE | 2018-10-27 11:52 | Discharge Summary ---
Providers Discharge Summary Date: 10/27/18 Date of admission: 10/23/18 20:17 Expected Date of Discharge: 10/27/18 Attending physician: SHAYY MONDRAGON Primary care physician: CARINA JACK D.O. Physical Exam - Vital Signs Vital Signs: Vital Signs - Last 24 Hrs Temp Pulse Resp BP Pulse Ox 10/27/18 09:00 16 10/26/18 21:00 70 16 10/26/18 16:00 98.6 F 70 16 113/67 98 - General General Appearance: Alert, Oriented x3, Cooperative, No acute distress Limitations: No limitations - Head Head exam: Atraumatic, Normal inspection - Eye Eye exam: Normal appearance. negative: Conjunctival injection, Scleral icterus - ENT ENT exam: Normal exam, Mucous membranes moist Ear exam: Normal external inspection Nasal Exam: Normal inspection Mouth exam: Normal external inspection Teeth exam: Normal inspection - Neck Neck exam: Normal inspection - Respiratory Respiratory exam: Normal lung sounds bilaterally. negative: Respiratory distress, Rhonchi, Stridor, Wheezes - Cardiovascular Cardiovascular Exam: Regular rate, Normal rhythm, Normal heart sounds Peripheral Pulses: 3+: Radial (R), Radial (L), Dorsalis Pedis (R), Dorsalis Pedis (L) - GI/Abdominal GI/Abdominal exam: Soft, Tenderness - Rectal Rectal exam: Deferred - exam: Deferred - Extremities Extremities exam: Normal inspection - Back Back exam: Reports: CVA tenderness (R). Denies: CVA tenderness (L) - Neurological Neurological exam: Alert, Oriented X3 - Psychiatric Psychiatric exam: Normal affect, Normal mood - Skin Skin exam: Dry, Intact, Normal color, Warm Hospitalization - Hospitalization Admission Diagnosis: Pyelonephritis - Problem List/Discharge Diagnosis (1) Pyelonephritis Current Visit: Yes Status: Acute Base Code: N12 - TUBULO-INTERSTITIAL NEPHRITIS, NOT SPCF ACUTE OR CHRONIC Comment: 10/24/18 -rocpehin 1gm BID IVPB -urine culture and BC x2 pending -encourage fluids -IVF 10/25/18 -cont rocephine 1gm BID, IVF changed to d5 r/t continued poor PO intake -pt reports n/v after azo, d/c and benadryl added for nausea control -pt encouraged to try sage farideh, crackers or jello to adcance diet -tolerating PO tylenol, still needing dilaudid -left CVA tenderness less but right still mod pain -UA culture still pending 10/26/18 -pt continues to have pain but has improved and is tolerating clear liq/soft diet -reports wanting to go home, encouraged to advance diet lunch/dinner and changing abx from IV to PO -d/c am if tolerating PO abx CVA left normal, right slight tenderness CVA 10/27/18 -tolerating reg diet and PO abx -pain manageable, pt appears well, smiling and ready for d/c -continue keflex 500mg TID x 5 more days (2) Hydronephrosis Current Visit: No Status: Acute Discharge Diagnosis: Hydronephrosis type: with ureteropelvic junction obstruction Qualified Code (s): Q62.11 - Congenital occlusion of ureteropelvic junction Base Code: N13.30 - UNSPECIFIED HYDRONEPHROSIS Comment: 10/24/18 -IV ABX -monitor I/O -pain control 10/25/18 -continue current treatement 10/26/18 -change IV ABX to PO with advancing diet (3) Abdominal pain Current Visit: Yes Status: Acute Base Code: R10.9 - UNSPECIFIED ABDOMINAL PAIN Comment: 10/24/18 -CT reviewed UTI -pt not tolerating PO well, attempted general diet in the AM but nausea returned and pain 08/06 -MAPS reviewed, one RX for norco last month correlating to last infection -Dilaudid 0.5mg q2h not effective for pain control, changed to 1mg dilaudid q3h , acetominophen IVPB, azo TID PRN -pt reported better pain control to nursing staff after lunch, declining dilaudid at that time -continue IV ABX, IVF and abd rest -reassess in the AM 10/25/18 -continue current med plan, attempt PO pain control when diet advanced and tolerated 10/26/18 -advance diet, PO abx 10/27/18 -Pt reports mild discomfort that is tolerable, left CVA neg, right slight CVA tenderness -d/c home today (4) Full code status Current Visit: Yes Status: Acute Base Code: Z78.9 - OTHER SPECIFIED HEALTH STATUS Comment: 10/27/18 -full code - Disposition Improved condition, pt a&ox4, skin pwd, ambulating in room no difficulty. tolerating regular diet and Po abx. D/C home, f/u PCP in 1-2 weeks and continue with urology consult Encouraged fluids to maintain good hydration - Hospitalization Course Disposition: Home, Self-Care Hospital Course: Pt presents for phylonephritis. Pt reports that symptoms started monday with freq, urgency and burning. Called PCP monday but could not be seen until monday. Denies any past issues with UTI outside of last month having same issue. PCP referred to urology but pt does not have insurance at this time. Pt presented to [facility] ER 10/23/18 for abd pain and nausea. CT reviewed positive for UTI, no stone noted UA positive UTI, culture pending, BC x2 pending Pt medicated with Rocephin 1gm QD, 1L NS bolus, zofran IVP, dialudid 0.5mg IVP, toradol given once. Labs WBC 7.3, Hbg 13.4, Plt 205 NA136, K 3.6, CO2 26, BUN 9, GFR>60, Glucose 96, LFTs normal UA positive, culture pending Vitals BP 107/74, Hr 99, RR20, 98% RA, 99.4 F, pain 09/0510/24/18 Pt resting in bed with lights off and door closed. Mild distress noted r/t pain 08/06. CVA tenderness noted right worse than left, suprapubic abd pain noted with palpation. Pt attempted general diet in the am but nausea returned and pain continued, diet changed to soft. Medications adjusted for pain, MAPS reviewed. Dilaudid 1mg q3h, acetaminophen IVPB, and azo ordered. Rocephin 1gm increased to BID. IVF and zofran to continue. Pt encouraged to drink fluids, avoid caffeine if possible. Lungs clear to auscultation. Move all extremities. PCP Roshni Doan (urology referral from PCP not completed yet) Procedures: Imaging and X-Rays 10/23/18 18:00 ABDOMEN/PELVIS W CONTRAST [CT] Stat Abnormal Labs: Abnormal Lab Results 10/23/18 10/23/18 10/23/18 Range/Units 17:30 17:50 17:50 RBC (3.80-5.40) M/uL Hgb (11.6-16.0) gm/dl Hct (35.0-47.0) % MPV 11.1 H (7.4-10.4) fl Monocytes % 12.0 H (0-9) % Chloride 96 L (98-107) mmol/L BUN (6-20) mg/dL Creatinine (0.5-0.9) mg/dL Calcium (8.6-10.0) mg/dL Total Bilirubin 1.10 H (0.2-1.0) mg/dL Urine Protein 100 mg/dl H (NEGATIVE) Urine Blood Large H (NEGATIVE) Urine Nitrite Positive H (NEGATIVE) Ur Leukocyte Esterase Large H (NEGATIVE) 10/25/18 10/25/18 Range/Units 06:20 06:20 RBC 3.53 L (3.80-5.40) M/uL Hgb 10.6 L (11.6-16.0) gm/dl Hct 32.1 L (35.0-47.0) % MPV 11.3 H (7.4-10.4) fl Monocytes % 11.5 H (0-9) % Chloride (98-107) mmol/L BUN 4 L (6-20) mg/dL Creatinine 0.4 L (0.5-0.9) mg/dL Calcium 8.4 L (8.6-10.0) mg/dL Total Bilirubin (0.2-1.0) mg/dL Urine Protein (NEGATIVE) Urine Blood (NEGATIVE) Urine Nitrite (NEGATIVE) Ur Leukocyte Esterase (NEGATIVE) Condition at Discharge: (2) Stable Discharge Medications - Discharge Medications Prescriptions: Cephalexin [Keflex] 500 mg PO Q8H 5 Days #15 capsule Home Medications: Ambulatory Orders Cephalexin [Keflex] 500 mg PO Q8H 5 Days #15 capsule 10/27/18 [Last Taken Unknown] Ondansetron [Zofran Odt] 4 mg PO Q8H PRN 4 Days #12 tab.rapdis 10/27/18 [Last Taken Unknown] Discharge Plan - Discharge Instructions Activity at Discharge: Increase Activity as Tolerated Diet at Discharge: Regular Diet Instructions: Urinary Tract Infection in Women (DC), Kidney Infection (DC) Additional Instructions: Drink plenty of fluids. Cranberry juice is good. Keflex take one cap every 8 hours until gone. Start at noon. Follow up with your doctor in one week. make sure to complete the urology referral Diet and activity as tolerated. Quality Measures - Quality Measures Quality Measures: Documentation of Current Medications in Medical Record, Screening for High Blood Pressure and F/U Documented - Current Medications Quality Measure: Measure #130: Documentation of Current Medications Documentation of Current Medications: <Current Medications Documented/Reviewed> [G8427] - Blood Pressure Screening Quality Measure: Screening for High Blood Pressure and Follow-Up Documented Does Patient Have Any of the Following: No Blood Pressure Classification: Normal BP Reading Systolic Measurement: 107 Diastolic Measurement: 74 Screening for High Blood Pressure: < Normal BP, F/U Not Required > [G8783] - Elder Abuse Suspicion Index EASI Reference Information: Floresita NEWELL, Johan C, Waqar D, Kobi Mukherjee.Development and validation of a tool to assist physicians identification of elder abuse: The Elder Abuse Suspicion Index (EASI ). Journal of Elder Abuse and Neglect, 2008; 20 (3): 276-300.
== END 2018-10-27 12:03 | disposition home or self-care (01) ==
LOC: ER 17:10 → MEDSURG 20:17
PROVIDERS: ADMIT Internal Medicine; ATTEND Internal Medicine
DX: N12 Tubulo-interstitial nephritis, not specified as acute or chronic (principal); Q62.11 Congenital occlusion of ureteropelvic junction; R10.31 Right lower quadrant pain; R11.10 Vomiting, unspecified; R42 Dizziness and giddiness; Z87.442 Personal history of urinary calculi
CPT/HCPCS: 74177; 80048; 80053; 81001; 81025; 85025; 96361; 96365; 96375; 99217; 99220; 99225; 99285; J0696; J1200; J1650; J1885; J2405; J7030; J7070